=== PATIENT | female | born 1990 | race Hispanic/Latino ===

== ENCOUNTER → 2022-02-18 | Day surgery (SDC) | payer OTHER ==
[~2022-02-18] MED LIST: Acetaminophen 500 MG TAB ONE; Acetaminophen 500 MG TAB PO SCH; Iron Sucrose Complex 500 MG in Sodium Chloride 0.9% 250 ML 250 ML IVPB SCH
== END ==
LOC: CSHSDC 12:25
DX: O99.019 Anemia complicating pregnancy, unspecified trimester (principal); D64.9 Anemia, unspecified; Z3A.00 Weeks of gestation of pregnancy not specified
CPT/HCPCS: J1756; J7050

== ENCOUNTER 2022-05-09 13:21 | Day surgery (SDC) | payer OTHER, SELFPAY ==
[2022-05-09] MEDS ORDERED: hydrALAZINE 20 MG/ML VIAL SLOW IVP PRN (15:38)
[2022-05-09] MEDS ORDERED: Acetaminophen 500 MG TAB PO SCH (16:00)
[2022-05-09] MEDS ORDERED: Lactated Ringer's 1,000 ML IV SCH (16:15)
[2022-05-09 16:30] LABS: #Eosinphils 0.1 10x3/uL (0.0-0.5); #Neutrophils 8.9 10x3/uL (1.5-8.4); %Basophils 0.3 % (0.0-2.0); %Eosinophils 0.8 % (0.0-6.0); %Lymphocytes 14.3 % (18.0-47.0); %Monocytes 8.7 % (0.0-10.0); %Neutrophils 74.9 % (40.0-75.0); Hemoglobin 11.9 g/dL (12.0-15.5); Mean Corpuscular HGB CONC 34.2 g/dL (32.0-36.0); Mean Corpuscular Hemoglobin 27.6 pg (27.0-33.0); Mean Corpuscular Volume 80.7 fl (81.6-98.3); Mean Platelet Volume 10.9 fl (7.4-10.4); Platelet Count 288 10x3/uL (150-450); RBC Distribution Width 16.6 % (11.5-14.5); Red Blood Cell (RBC) Count 4.31 10x6/uL (3.90-5.03); White Blood Cell (WBC) Count 11.9 10x3/uL (3.5-10.5)
[2022-05-09 16:50] LABS: ALT (SGPT) 9 U/L (8-55); AST (SGOT) 13 U/L (5-34); Albumin 3.5 g/dL (3.5-5.0); Alkaline Phosphatase 211 U/L (40-110); Anion Gap 15 mmol/L (10-20); BUN (Urea Nitrogen) 9 mg/dL (7.0-18.7); Bilirubin, Total 0.3 mg/dL (0.2-1.2); Calc. Creatinine Clearance 0 mL/min (70-130); Calcium 9.6 mg/dL (7.8-10.44); Carbon Dioxide 19 mmol/L (22-29); Chloride 106 mmol/L (98-107); Estimated GFR 125; Globulin 3.3 g/dL (2.4-3.5); Glucose 86 mg/dL (70-105); Potassium 3.8 mmol/L (3.5-5.1); Protein, Total 6.8 g/dL (6.0-8.3); Sodium 136 mmol/L (136-145)
== END 2022-05-09 17:25 | disposition home or self-care (01) ==
LOC: CSHLD/OP 13:21
PROVIDERS: ATTEND Family Medicine
DX: Z03.79 Encounter for other suspected maternal and fetal conditions ruled out (principal); O99.013 Anemia complicating pregnancy, third trimester; D64.9 Anemia, unspecified; Z3A.39 39 weeks gestation of pregnancy
CPT/HCPCS: 80053; 82570; 84156; 85025; 99283

== ENCOUNTER 2022-05-12 16:22 | Inpatient (IN) | payer MEDICAID, SELFPAY ==
[~2022-05-12 16:22] MED LIST changes: -Acetaminophen 500 MG TAB ONE; -Acetaminophen 500 MG TAB PO SCH; +Bupivacaine 0.25% HCL 30 ML VIAL ONE; -Iron Sucrose Complex 500 MG in Sodium Chloride 0.9% 250 ML 250 ML IVPB SCH
[2022-05-12] MEDS ORDERED: Lorazepam 2 MG/ML VIAL SLOW IVP PRN (18:00)
[2022-05-12] MEDS ORDERED: Promethazine HCl 25 MG/ML VIAL IM PRN (18:00)
[2022-05-12] MEDS ORDERED: hydrALAZINE 20 MG/ML VIAL SLOW IVP PRN ×3 (18:00)
[2022-05-12] MEDS ORDERED: Carboprost 250 MCG/ML AMP IM PRN (18:00)
[2022-05-12] MEDS ORDERED: Ondansetron PF 4 MG/2 ML Vial IVP PRN (18:00)
[2022-05-12] MEDS ORDERED: Calcium Gluc 4.6 MEQ/10 ML (100 MG/ML) SLOW IVP PRN (18:00)
[2022-05-12] MEDS ORDERED: Tranexamic Acid 1,000 MG in Sodium Chloride 0.9% 250 ML 250 ML IVPB PRN (18:00)
[2022-05-12] MEDS ORDERED: Diphenoxylate HCl/Atropine Tablet PO PRN (18:00)
[2022-05-12] MEDS ORDERED: Misoprostol 200 MCG TAB PR PRN (18:00)
[2022-05-12] MEDS ORDERED: Labetalol HCl 100 MG/20 ML VIAL SLOW IVP PRN ×2 (18:00)
[2022-05-12] MEDS ORDERED: NS w/ Oxytocin 30 units 500 ML IV SCH ×2 (18:00→19:30)
[2022-05-12] MEDS ORDERED: Ibuprofen 800 MG TAB PO PRN (19:16)
[2022-05-12] MEDS ORDERED: Lidocaine 1% (PF) 30 ML VIAL SC PRN (19:16)
[2022-05-12 19:46] VITALS: BMI 29.0
[2022-05-12] MEDS ORDERED: Acetaminophen 500 MG TAB PO PRN (19:59)
[2022-05-12] MEDS: Lactated Ringer's 1,000 ML IV SCH (21:15)
[2022-05-12 21:56] LABS: #Eosinphils 0.1 10x3/uL (0.0-0.5); #Neutrophils 9.7 10x3/uL (1.5-8.4); %Basophils 0.2 % (0.0-2.0); %Eosinophils 1.1 % (0.0-6.0); %Lymphocytes 14.5 % (18.0-47.0); %Monocytes 7.7 % (0.0-10.0); %Neutrophils 75.7 % (40.0-75.0); Hemoglobin 11.9 g/dL (12.0-15.5); Mean Corpuscular HGB CONC 34.3 g/dL (32.0-36.0); Mean Corpuscular Hemoglobin 27.6 pg (27.0-33.0); Mean Corpuscular Volume 80.5 fl (81.6-98.3); Platelet Count 277 10x3/uL (150-450); RBC Distribution Width 16.8 % (11.5-14.5); Red Blood Cell (RBC) Count 4.31 10x6/uL (3.90-5.03); White Blood Cell (WBC) Count 12.8 10x3/uL (3.5-10.5)
[2022-05-12 21:57] LABS: ALT (SGPT) 10 U/L (8-55); AST (SGOT) 12 U/L (5-34); Albumin 3.7 g/dL (3.5-5.0); Alkaline Phosphatase 215 U/L (40-110); Anion Gap 15 mmol/L (10-20); BUN (Urea Nitrogen) 9 mg/dL (7.0-18.7); Bilirubin, Total 0.3 mg/dL (0.2-1.2); Calc. Creatinine Clearance 198 mL/min (70-130); Calcium 9.5 mg/dL (7.8-10.44); Carbon Dioxide 18 mmol/L (22-29); Chloride 106 mmol/L (98-107); Estimated GFR 128; Globulin 2.9 g/dL (2.4-3.5); Glucose 84 mg/dL (70-105); Potassium 3.9 mmol/L (3.5-5.1); Protein, Total 6.6 g/dL (6.0-8.3); Sodium 135 mmol/L (136-145)
[2022-05-12] MEDS: Misoprostol 100 MCG TAB VAG SCH (23:03)
[2022-05-12 23:57] LABS: SARS-CoV-2 NAA Rapid Test Not Detected (NotDetected)
[2022-05-13 00:05] LABS: Syphilis Antibody Nonreactive (Nonreactive); Syphilis Antibody Index 0.04 S/CO (<1.00 Non-Reactive)
[2022-05-13 00:06] LABS: HBSAg Index 0.15 S/CO (0-0.99); Hep B Surf Ag Non-Reactive S/CO (NonReactive)
[2022-05-13] MEDS: Misoprostol 100 MCG TAB VAG SCH (02:08)
[2022-05-13] MEDS: Lactated Ringer's 1,000 ML IV SCH ×2 (05:03→13:00)
[2022-05-13] MEDS ORDERED: Prenatal Vitamin 1 TAB PO SCH (09:00)
[2022-05-13] MEDS ORDERED: FERROUS FUMARATE 324 MG PO SCH (09:00)
[2022-05-13] MEDS ORDERED: Fentanyl 2 mcg/Bup 0.1% Cadd 100 ML ONE (12:24)
[2022-05-13] MEDS ORDERED: Ondansetron PF 4 MG/2 ML Vial IVP PRN (12:30)
[2022-05-13] MEDS ORDERED: Communication Order-Pharmacy FS SCH (12:30)
[2022-05-13] MEDS ORDERED: Naloxone HCl 0.4 mg/ml Vial IVP PRN ×2 (12:30)
[2022-05-13] MEDS ORDERED: Promethazine HCl 25 MG/ML VIAL IM PRN (12:30)
[2022-05-13] MEDS ORDERED: ePHEDrine Sulfate 50 MG/10 ML VIAL SLOW IVP PRN (12:30)
[2022-05-13] MEDS ORDERED: Moisturizing Cream (Eucerin) 113 GM JAR TOP PRN (12:30)
[2022-05-13] MEDS ORDERED: Acetaminophen 325 MG TAB PO PRN (12:30)
[2022-05-13] MEDS ORDERED: diphenhydrAMINE 50 MG/ML VIAL IVP PRN (12:30)
[2022-05-13] MEDS ORDERED: Fentanyl 2 mcg/Bupivacaine 0.1% Cassette 100 ML EPIDURAL SCH (12:30)
[2022-05-13] MEDS ORDERED: Lactated Ringer's 500 ML IV PRN (12:47)
[2022-05-13] MEDS ORDERED: Fentanyl 100 MCG/2 ML VIAL ONE ×2 (15:49→21:06)
[2022-05-13 16:44] LABS: Creatinine, Urine 71.32 mg/dL (47-110)
[2022-05-13] MEDS ORDERED: Lidocaine 2% MPF 10 ML AMP (For Epidural Use) ONE ×3 (21:06→22:14)
[2022-05-13] MEDS ORDERED: Morphine PF 10 MG/10 ML VIAL ONE (21:06)
[2022-05-13] MEDS ORDERED: CEFAZOLIN 2 GM VIAL ONE (21:09)
[2022-05-13] MEDS ORDERED: Phenylephrine 40 MG/NS 250 ML 250 ML ONE (21:15)
[2022-05-13] MEDS ORDERED: Azithromycin 500 MG VIAL ONE (21:15)
[2022-05-13] MEDS ORDERED: Bicitra 30 ML UDCUP PO PRN (21:19)
[2022-05-13] MEDS ORDERED: Famotidine/PF 20 mg/2ml Vial SLOW IVP PRN (21:19)
[2022-05-13] MEDS ORDERED: CEFAZOLIN 2 GM in Sodium Chloride 0.9% 100 ML IVPB SCH (21:30)
[2022-05-13] MEDS ORDERED: Azithromycin 500 MG in Sodium Chloride 0.9% 250 ML 250 ML IVPB SCH (21:30)
[2022-05-13] MEDS ORDERED: Methylergonovine 0.2 MG/ML VIAL ONE (21:34)
[2022-05-13] MEDS ORDERED: Carboprost 250 MCG/ML AMP ONE (21:35)
[2022-05-13] MEDS ORDERED: Oxytocin 10 UNITS/ML VIAL ONE ×2 (21:39→22:41)
[2022-05-13] MEDS ORDERED: Dexamethasone 4 mg/ml Vial ONE (21:39)
[2022-05-13] MEDS ORDERED: Ondansetron PF 4 MG/2 ML Vial ONE (21:39)
[2022-05-13] MEDS ORDERED: Tranexamic Acid 1,000 MG/10 ML VIAL ONE (21:40)
[2022-05-13] MEDS ORDERED: diphenhydrAMINE 50 MG/ML VIAL ONE (22:09)
[2022-05-13] MEDS ORDERED: Lidocaine 2% PF 100 mg/5 ml Syringe ONE (22:13)
[2022-05-13 22:18] LABS: RapidComm Collect By CBN
[2022-05-13 22:19] LABS: RapidComm Collect By CBN
[2022-05-13] MEDS ORDERED: Ketorolac Tromethamine 30 MG/ML VIAL ONE (22:33)
[2022-05-13] MEDS ORDERED: Azithromycin 250 MG TAB PO SCH (23:00)
[2022-05-13] MEDS ORDERED: Varicella virus, LIVE 0.5 ML VIAL SC ONE (23:53)
[2022-05-13] MEDS ORDERED: Measles/Mumps/Rubella 10 MCG/0.5 ML VIAL SC ONE (23:53)
[2022-05-13] MEDS ORDERED: HYDROcodone/Acetaminophen 5/325 mg Tablet PO PRN ×2 (23:53)
[2022-05-13] MEDS ORDERED: Simethicone Chewable 80 MG TAB PO PRN (23:53)
[2022-05-13] MEDS ORDERED: Boostrix 0.5 ML (Tdap) VIAL (>/=7 yrs of age) IM ONE (23:53)
[2022-05-13] MEDS ORDERED: Diphenoxylate HCl/Atropine Tablet PO PRN (23:53)
[2022-05-13] MEDS ORDERED: Misoprostol 200 MCG TAB PR PRN (23:53)
[2022-05-13] MEDS ORDERED: Lanolin Ointment 7 GM TUBE TOP PRN (23:53)
[2022-05-13] MEDS ORDERED: hydrALAZINE 20 MG/ML VIAL SLOW IVP PRN (23:53)
[2022-05-14] MEDS ORDERED: Fentanyl 100 MCG/2 ML VIAL ONE (00:24)
[2022-05-14] MEDS ORDERED: Naloxone HCl 0.4 mg/ml Vial IV PRN (00:32)
[2022-05-14] MEDS ORDERED: Meperidine HCl/PF 25 MG/ML VIAL SLOW IVP PRN (00:32)
[2022-05-14] MEDS ORDERED: Fentanyl 100 MCG/2 ML VIAL SLOW IVP PRN (00:32)
[2022-05-14] MEDS ORDERED: diphenhydrAMINE 50 MG/ML VIAL IVP PRN (00:32)
[2022-05-14] MEDS ORDERED: Ondansetron HCl/PF 4 MG/2 ML Vial IVP PRN (00:32)
[2022-05-14] MEDS ORDERED: Naloxone HCl 0.4 mg/ml Vial IVP PRN ×2 (00:32)
[2022-05-14] MEDS ORDERED: Ketorolac Tromethamine 30 MG/ML VIAL IVP PRN (00:32)
[2022-05-14] MEDS ORDERED: Promethazine HCl 25 MG SUPP PR PRN (00:32)
[2022-05-14] MEDS ORDERED: Ondansetron PF 4 MG/2 ML Vial IVP PRN (00:32)
[2022-05-14] MEDS ORDERED: Promethazine HCl 25 MG/ML VIAL IM PRN (00:32)
[2022-05-14] MEDS ORDERED: Moisturizing Cream (Eucerin) 113 GM JAR TOP PRN (00:32)
[2022-05-14] MEDS ORDERED: Ketorolac Tromethamine 30 MG/ML VIAL IVP SCH (00:45)
[2022-05-14] MEDS ORDERED: Communication Order-Pharmacy FS SCH (00:45)
[2022-05-14] MEDS: CEFAZOLIN 2 GM in Sodium Chloride 0.9% 100 ML IVPB SCH ×3 (05:39→22:17)
[2022-05-14] MEDS: Misoprostol 100 MCG TAB VAG SCH (06:14)
[2022-05-14] MEDS: Lactated Ringer's 1,000 ML IV SCH (06:14)
[2022-05-14 06:33] LABS: Hemoglobin 11.1 g/dL (12.0-15.5); Mean Corpuscular HGB CONC 34.3 g/dL (32.0-36.0); Mean Corpuscular Hemoglobin 27.5 pg (27.0-33.0); Mean Corpuscular Volume 80.4 fl (81.6-98.3); Mean Platelet Volume 11.2 fl (7.4-10.4); Platelet Count 256 10x3/uL (150-450); RBC Distribution Width 16.8 % (11.5-14.5); Red Blood Cell (RBC) Count 4.03 10x6/uL (3.90-5.03); White Blood Cell (WBC) Count 21.1 10x3/uL (3.5-10.5)
[2022-05-14] MEDS: Prenatal Vitamin 1 TAB PO SCH (10:54)
[2022-05-14] MEDS: Ferrous Sulfate 325 MG TAB PO SCH ×2 (10:54→19:22)
[2022-05-14] MEDS: Docusate 100 MG CAP PO SCH ×2 (10:54→22:18)
[2022-05-14] MEDS ORDERED: HYDROcodone/Acetaminophen 5/325 mg Tablet PO PRN ×2 (12:45)
[2022-05-14] MEDS ORDERED: Azithromycin 500 MG in Sodium Chloride 0.9% 250 ML 250 ML IVPB SCH (23:00)
[2022-05-15] MEDS: Ibuprofen 800 MG TAB PO SCH ×2 (04:44→12:31)
[2022-05-15] MEDS: Docusate 100 MG CAP PO SCH (08:30)
[2022-05-15] MEDS: Prenatal Vitamin 1 TAB PO SCH (08:30)
[2022-05-15] MEDS: Ferrous Sulfate 325 MG TAB PO SCH (11:24)
[2022-05-15 12:57] VITALS: BP 109/67; TEMP 98.4
== END 2022-05-15 17:40 | disposition home or self-care (01) | DRG 788 ==
LOC: CSHLD/OP 16:22 → CSHLD 17:48 → CSHPP 05-14 02:04
PROVIDERS: ADMIT Family Medicine; ATTEND Family Medicine
PROC: 3E0P7VZ Introduction of Hormone into Female Reproductive, Via Natural or Artificial Opening (ICD-10-PCS; 2022-05-12)
PROC: 10907ZC Drainage of Amniotic Fluid, Therapeutic from Products of Conception, Via Natural or Artificial Opening (ICD-10-PCS; 2022-05-13)
PROC: 10H07YZ Insertion of Other Device into Products of Conception, Via Natural or Artificial Opening (ICD-10-PCS; 2022-05-13)
PROC: 4A1HXCZ Monitoring of Products of Conception, Cardiac Rate, External Approach (ICD-10-PCS; 2022-05-13)
PROC: 4A1HXFZ Monitoring of Products of Conception, Cardiac Rhythm, External Approach (ICD-10-PCS; 2022-05-13)
PROC: 3E033VJ Introduction of Other Hormone into Peripheral Vein, Percutaneous Approach (ICD-10-PCS; 2022-05-13)
PROC: 10D00Z1 Extraction of Products of Conception, Low, Open Approach (ICD-10-PCS; principal; 2022-05-14)
DX: O14.04 Mild to moderate pre-eclampsia, complicating childbirth (principal); Z3A.39 39 weeks gestation of pregnancy; Z37.0 Single live birth; Z20.822 Contact with and (suspected) exposure to COVID-19; O99.02 Anemia complicating childbirth; D50.9 Iron deficiency anemia, unspecified; O76 Abnormality in fetal heart rate and rhythm complicating labor and delivery; Z83.3 Family history of diabetes mellitus; Z82.49 Family history of ischemic heart disease and other diseases of the circulatory system; O32.4XX0 Maternal care for high head at term, not applicable or unspecified; O32.8XX0 Maternal care for other malpresentation of fetus, not applicable or unspecified; O66.5 Attempted application of vacuum extractor and forceps
CPT/HCPCS: 36415; 51702; 80053; 82570; 82805; 84156; 85025; 85027; 86780; 86850; 86900; 86901; 87340; 88307; J0456; J1100; J1200; J1885; J2001; J2274; J2405; J2590; J3010; J3490; J7050; J7120; S0020; U0002